=== PATIENT | male | born 1980 | race Hispanic/Latino ===

== ENCOUNTER 2017-10-02 22:39 | Emergency (ER) | payer SELFPAY ==
[2017-10-02 23:27] LABS: Absolute Lymphocytes (CBC) 1.4 K/uL (0.7-4.9); Absolute Monocytes 0.6 K/uL (0.1-1.3); Absolute Neutrophil 6.9 K/uL (1.8-8.0); Basophils % 0.3 % (0-1.3); Eosinophils % 1.6 % (0-4.4); Hematocrit 41.2 % (39.6-49.0); Lymphocytes % 15.3 % (15.3-44.8); MCH 32.3 pg (27.0-35.0); MCV 91.8 fL (80-100); MPV 9.5 fL (7.6-11.3); Monocytes % 6.7 % (3.3-12.3); RBC Red Blood Cell Count 4.49 M/uL (4.33-5.43)
[2017-10-02] MEDS ORDERED: METOPROLOL TARTRATE 5 MG/5 ML INJ IV ONE (23:27)
[2017-10-02] MEDS ORDERED: ACETAMINOPHEN 500 MG TAB ONE (23:27)
[2017-10-02] MEDS ORDERED: ONDANSETRON 4 MG (ODT) TAB ONE (23:27)
[2017-10-02] MEDS ORDERED: cloNIDine HCl 0.1 MG TAB ONE (23:27)
[2017-10-02] MEDS ORDERED: NA CHLORIDE 0.9% 1,000 ML ONE (23:27)
[2017-10-02 23:42] LABS: Potassium 4.1 mmol/L (3.5-5.1)
[2017-10-03] MEDS ORDERED: cloNIDine HCl 0.1 MG TAB ONE (00:29)
[2017-10-03] MEDS ORDERED: NITROGLYCERIN 0.4 MG/TAB SL ONE (01:28)
--- NOTE | 2017-10-03 02:04 | EDPHYS ---
Physician Documentation [facility] Name: Anthony Persaud Age: 36 yrs Sex: Male : 1980 Arrival Date: 10/02/2017 Time: 22:40 Bed 8 Private MD: ED Physician Maxwell Serrano HPI: 10/02 23:04 This 36 yrs old Male presents to ER via Ambulatory with complaints of pkl Headache, High Blood Pressure, Vomiting. 23:04 The patient complains of pain to the left frontal area and left temporal area. The pkl patient describes the headache as constant. Onset: The symptoms/episode began/occurred today, 8 hour(s) ago. Associated signs and symptoms: Pertinent positives: vomiting, Elevated blood pressure. Patient non-compliant with BP medications. Historical: - Allergies: 22:52 No Known Allergies; ak1 - Home Meds: 22:52 carvedilol 6.25 mg oral tab 1 tab [Active]; hydrochlorothiazide 25 mg Oral tab 1 tab ak1 [Active]; - PMHx: 22:52 Hypertension; ak1 - PSHx: 22:52 None; ak1 - Immunization history:: Adult Immunizations up to date. - Social history:: Smoking status: Patient/guardian denies using tobacco. - Ebola Screening: : No symptoms or risks identified at this time. ROS: 23:06 Eyes: Negative for injury, pain, redness, and discharge, ENT: Negative for injury, pkl pain, and discharge, Neck: Negative for injury, pain, and swelling, Cardiovascular: Negative for chest pain, palpitations, and edema, Respiratory: Negative for shortness of breath, cough, wheezing, and pleuritic chest pain. 23:06 Abdomen/GI: Positive for vomiting. 23:06 Back: Negative for acute changes. 23:06 : Negative for urinary symptoms. 23:06 MS/extremity: Negative for acute changes. 23:06 Skin: Negative for rash. 23:06 Neuro: Positive for headache. Exam: 23:06 Head/Face: Normocephalic, atraumatic. Eyes: Pupils equal round and reactive to light, pkl extra-ocular motions intact. Lids and lashes normal. Conjunctiva and sclera are non-icteric and not injected. Cornea within normal limits. Periorbital areas with no swelling, redness, or edema. ENT: Nares patent. No nasal discharge, no septal abnormalities noted. Tympanic membranes are normal and external auditory canals are clear. Oropharynx with no redness, swelling, or masses, exudates, or evidence of obstruction, uvula midline. Mucous membranes moist. Neck: Trachea midline, no thyromegaly or masses palpated, and no cervical lymphadenopathy. Supple, full range of motion without nuchal rigidity, or vertebral point tenderness. No Meningismus. Chest/axilla: Normal chest wall appearance and motion. Nontender with no deformity. No lesions are appreciated. Cardiovascular: Regular rate and rhythm with a normal S1 and S2. No gallops, murmurs, or rubs. Normal PMI, no JVD. No pulse deficits. Respiratory: Lungs have equal breath sounds bilaterally, clear to auscultation and percussion. No rales, rhonchi or wheezes noted. No increased work of breathing, no retractions or nasal flaring. Abdomen/GI: Soft, non-tender, with normal bowel sounds. No distension or tympany. No guarding or rebound. No evidence of tenderness throughout. Back: No spinal tenderness. No costovertebral tenderness. Full range of motion. Skin: Warm, dry with normal turgor. Normal color with no rashes, no lesions, and no evidence of cellulitis. MS/ Extremity: Pulses equal, no cyanosis. Neurovascular intact. Full, normal range of motion. Neuro: Awake and alert, GCS 15, oriented to person, place, time, and situation. Cranial nerves II-XII grossly intact. Motor strength 5/5 in all extremities. Sensory grossly intact. Cerebellar exam normal. Normal gait. Vital Signs: 22:49 BP 217 / 129; Pulse 83; Resp 18; Temp 98.5; Pulse Ox 98% on R/A; Weight 108.86 kg (R); ak1 Height 5 ft. 9 in. (175.26 cm) (R); Pain 9/10; 23:00 BP 206 / 133; Pulse 77; Resp 18; Pulse Ox 98% on R/A; lp1 23:15 BP 192 / 127; Pulse 74; Resp 19; Pulse Ox 98% on R/A; lp1 23:30 BP 195 / 129; Pulse 75; Resp 19; Pulse Ox 98% on R/A; lp1 23:45 BP 184 / 125; Pulse 68; Resp 18; Pulse Ox 97% on R/A; lp1 10/03 00:15 BP 179 / 118; Pulse 70; Resp 20; Pulse Ox 98% on R/A; lp1 00:45 BP 167 / 115; Pulse 64; Resp 15; Pulse Ox 96% on R/A; lp1 01:15 BP 150 / 121; Pulse 62; Resp 14; Pulse Ox 96% on R/A; lp1 01:30 BP 164 / 108; Pulse 64; Resp 14; Pulse Ox 96% on R/A; lp1 02:00 BP 149 / 100; Pulse 65; Resp 14; Pulse Ox 96% on R/A; lp1 02:30 BP 140 / 102; Pulse 64; Resp 16; Pulse Ox 96% on R/A; ao 10/02 22:49 Body Mass Index 35.44 (108.86 kg, 175.26 cm) ak1 MDM: 10/02 22:41 Patient medically screened. pkl 10/03 02:02 Data reviewed: vital signs, nurses notes, lab test result(s), radiologic studies, CT pkl scan. 10/02 22:57 Order name: CBC with Diff; Complete Time: 23:34 pkl 10/02 22:57 Order name: Chem 7; Complete Time: 23:43 pkl 10/02 22:57 Order name: CT Head Brain wo Cont pkl 10/02 23:08 Order name: EKG - Nurse/Tech; Complete Time: 23:08 1 10/02 23:08 Order name: EKG; Complete Time: 23:08 [facility] Administered Medications: 10/02 23:30 Drug: NS 0.9% 1000 ml Route: IV; Rate: 100 ml/hr; Site: left antecubital; [facility] 10/03 02:49 Follow up: IV Status: IV converted to saline lock [facility] 10/02 23:30 Drug: Lopressor 5 mg Route: IVP; Site: left antecubital; [facility] 10/03 00:24 Follow up: Response: Blood pressure is lowered [facility] 10/02 23:30 Drug: cloNIDine 0.1 mg Route: PO; [facility] 10/03 00:24 Follow up: Response: Blood pressure is lowered [facility] 10/02 23:30 Drug: Tylenol 1000 mg Route: PO; [facility] 10/03 00:24 Follow up: Response: Pain is decreased [facility] 10/02 23:30 Drug: Zofran 4 mg Route: PO; lp1 10/03 00:24 Follow up: Response: Nausea is decreased lp1 00:28 Drug: cloNIDine 0.1 mg Route: PO; lp1 02:48 Follow up: Response: Blood pressure is lowered lp1 01:43 Drug: Nitroglycerin 0.4 mg Route: Sublingual; lp1 02:48 Follow up: Response: Blood pressure is lowered lp1 Disposition: 10/03/17 02:04 Discharged to Home. Impression: Acute headache. Severe hypertension. Non-compliant. Chronic sinusitis. - Condition is Stable. - Prescriptions for Ultram 50 mg Oral Tablet - take 1 tablet by ORAL route every 8 hours As needed; 20 tablet. - Medication Reconciliation Form, Thank You Letter, Antibiotic Education, Prescription Opioid Use, Work release form form. - Follow up: Mariely Gutierrez MD; When: 2 - 3 days; Reason: Re-evaluation by your physician. - Problem is new. - Symptoms have improved. Signatures: Dispatcher [employer] EDMS Maxwell Serrano MD MD pkl Martha Horn, RN RN lp1 Molly Miles, RN RN ak1 Corrections: (The following items were deleted from the chart) 02:50 02:04 10/03/2017 02:04 Discharged to Home. Impression: Acute headache. Severe lp1 hypertension. Non-compliant. Chronic sinusitis. Condition is Stable. Forms are Medication Reconciliation Form, Thank You Letter, Antibiotic Education, Prescription Opioid Use. Follow up: Mariely Gutierrez; When: 2 - 3 days; Reason: Re-evaluation by your physician. Problem is new. Symptoms have improved. pkl
--- NOTE | 2017-10-03 02:04 | ER ---
Nurse's Notes [facility] Name: Anthony Persaud Age: 36 yrs Sex: Male : 1980 Arrival Date: 10/02/2017 Time: 22:40 Bed 8 Private MD: Diagnosis: Acute headache. Severe hypertension. Non-compliant. Chronic sinusitis Presentation: 10/02 22:49 Presenting complaint: Patient states: headache since 1500 today. pt stated he should ak1 take blood pressure medications but does not. pt brought in full bottles of cravedilol 6.25mg and HCTZ 25mg. Transition of care: patient was not received from another setting of care. Onset of symptoms was October 02, 2017. Risk Assessment: Do you want to hurt yourself or someone else? Patient reports no desire to harm self or others. Care prior to arrival: None. 22:49 Method Of Arrival: Ambulatory ak1 22:49 Acuity: MISHA 3 ak1 23:11 Initial Sepsis Screen: Does the patient meet any 2 criteria? No. Patient's initial lp1 sepsis screen is negative. Does the patient have a suspected source of infection? No. Patient's initial sepsis screen is negative. Triage Assessment: 22:52 General: Appears in no apparent distress. Behavior is calm, cooperative. Pain: ak1 Complains of pain in head Pain currently is 9 out of 10 on a pain scale. Pain began 1500 today Also complains of nausea. EENT: No signs and/or symptoms were reported regarding the EENT system. Neuro: Level of Consciousness is awake, alert, obeys commands, Oriented to person, place, time, situation, Burr Bench Operator are equal bilaterally Moves all extremities. Gait is steady, Speech is normal, Facial symmetry appears normal. 23:15 Headache History: The patient has had previous headaches and this one is similar to lp1 previous episodes. Historical: - Allergies: 22:52 No Known Allergies; ak1 - Home Meds: 22:52 carvedilol 6.25 mg oral tab 1 tab [Active]; hydrochlorothiazide 25 mg Oral tab 1 tab ak1 [Active]; - PMHx: 22:52 Hypertension; ak1 - PSHx: 22:52 None; ak1 - Immunization history:: Adult Immunizations up to date. - Social history:: Smoking status: Patient/guardian denies using tobacco. - Ebola Screening: : No symptoms or risks identified at this time. Screenin:53 Abuse screen: Denies threats or abuse. Denies injuries from another. Nutritional ak1 screening: No deficits noted. Tuberculosis screening: No symptoms or risk factors identified. Fall Risk None identified. Assessment: 23:09 General: Appears in no apparent distress. Behavior is calm, cooperative, appropriate lp1 for age. Pain: Complains of pain in head Pain currently is 5 out of 10 on a pain scale. Quality of pain is described as aching. Neuro: Level of Consciousness is awake, alert, obeys commands, Oriented to person, place, time, situation, Gait is steady, Pupils are PERRLA, Reports headache. Cardiovascular: Patient's skin is warm and dry. Respiratory: Respiratory effort is even, unlabored, Breath sounds are clear bilaterally. GI: Reports nausea, vomiting. : No signs and/or symptoms were reported regarding the genitourinary system. EENT: No signs and/or symptoms were reported regarding the EENT system. Derm: Skin is pink, warm \T\ dry. Musculoskeletal: Circulation, motion, and sensation intact. 10/03 00:29 Reassessment: Patient appears in no apparent distress at this time. Patient and/or lp1 family updated on plan of care and expected duration. Pain level reassessed. Patient states headache relieved. 01:30 Reassessment: Patient appears in no apparent distress at this time. Patient and/or lp1 family updated on plan of care and expected duration. Pain level reassessed. Patient resting, eyes closed, respirations unlabored. 02:30 Reassessment: Patient appears in no apparent distress at this time. Patient and/or lp1 family updated on plan of care and expected duration. Pain level reassessed. Patient denies pain at this time. Patient states feeling better. Patient states symptoms have improved. Neuro: Gait is steady. Vital Signs: 10/02 22:49 BP 217 / 129; Pulse 83; Resp 18; Temp 98.5; Pulse Ox 98% on R/A; Weight 108.86 kg (R); ak1 Height 5 ft. 9 in. (175.26 cm) (R); Pain 9/10; 23:00 BP 206 / 133; Pulse 77; Resp 18; Pulse Ox 98% on R/A; lp1 23:15 BP 192 / 127; Pulse 74; Resp 19; Pulse Ox 98% on R/A; lp1 23:30 BP 195 / 129; Pulse 75; Resp 19; Pulse Ox 98% on R/A; lp1 23:45 BP 184 / 125; Pulse 68; Resp 18; Pulse Ox 97% on R/A; lp1 10/03 00:15 BP 179 / 118; Pulse 70; Resp 20; Pulse Ox 98% on R/A; lp1 00:45 BP 167 / 115; Pulse 64; Resp 15; Pulse Ox 96% on R/A; lp1 01:15 BP 150 / 121; Pulse 62; Resp 14; Pulse Ox 96% on R/A; lp1 01:30 BP 164 / 108; Pulse 64; Resp 14; Pulse Ox 96% on R/A; lp1 02:00 BP 149 / 100; Pulse 65; Resp 14; Pulse Ox 96% on R/A; lp1 02:30 BP 140 / 102; Pulse 64; Resp 16; Pulse Ox 96% on R/A; ao 10/02 22:49 Body Mass Index 35.44 (108.86 kg, 175.26 cm) ak1 ED Course: 10/02 22:40 Patient arrived in ED. al2 22:41 Maxwell Serrano MD is Attending Physician. pkl 22:50 Triage completed. ak1 22:52 Arm band placed on Patient placed in an exam room, on a stretcher, on pulse oximetry, ak1 Patient notified of wait time. 22:53 Patient has correct armband on for positive identification. Placed in gown. Bed in low ak1 position. Call light in reach. Side rails up X 1. Pulse ox on. NIBP on. 23:07 EKG done, by ED staff, reviewed by Maxwell Serrano MD. lp1 23:11 Davide Sun, RN is Primary Nurse. ao 23:12 Martha Horn, MAMIE is Primary Nurse. lp1 23:25 Inserted saline lock: 20 gauge in right antecubital area, using aseptic technique. lp1 23:33 CT completed. Patient tolerated procedure well. Patient moved to CT via wheelchair. eh Patient moved back from CT. 23:38 CT Head Brain wo Cont In Process Unspecified. EDMS 10/03 02:02 Mariely Gutierrez MD is Referral Physician. pkl 02:17 No provider procedures requiring assistance completed. lp1 02:47 IV discontinued, No redness/swelling at site. Pressure dressing applied. lp1 Administered Medications: 10/02 23:30 Drug: NS 0.9% 1000 ml Route: IV; Rate: 100 ml/hr; Site: left antecubital; lp1 10/03 02:49 Follow up: IV Status: IV converted to saline lock lp1 10/02 23:30 Drug: Lopressor 5 mg Route: IVP; Site: left antecubital; lp1 10/03 00:24 Follow up: Response: Blood pressure is lowered lp1 10/02 23:30 Drug: cloNIDine 0.1 mg Route: PO; lp1 10/03 00:24 Follow up: Response: Blood pressure is lowered lp1 10/02 23:30 Drug: Tylenol 1000 mg Route: PO; lp1 10/03 00:24 Follow up: Response: Pain is decreased lp1 10/02 23:30 Drug: Zofran 4 mg Route: PO; lp1 10/03 00:24 Follow up: Response: Nausea is decreased lp1 00:28 Drug: cloNIDine 0.1 mg Route: PO; lp1 02:48 Follow up: Response: Blood pressure is lowered lp1 01:43 Drug: Nitroglycerin 0.4 mg Route: Sublingual; lp1 02:48 Follow up: Response: Blood pressure is lowered lp1 Outcome: 02:04 Discharge ordered by . [email or web address] 02:47 Discharged to home ambulatory. lp1 02:47 Condition: good 02:47 Discharge instructions given to patient, Instructed on discharge instructions, follow up and referral plans. medication usage, Demonstrated understanding of instructions, follow-up care, medications, Prescriptions given X 1. 02:50 Patient left the ED. lp1 Signatures: Dispatcher [employer] EDMS Maxwell Serrano MD MD pkl Hagler, Ervin eh Pena, Laura, RN RN lp1 Molly Miles RN RN luis1 Davide Sun RN RN Brooklyn Sawyer
--- NOTE | 2017-10-03 06:46 | EKG ---
Test Date: 2017-10-02 Test Time: 22:59:56 [employer] Fundraiser: SARATH MEASUREMENT RESULTS: Intervals: Rate: 76 MO: 146 QRSD: 104 QT: 394 QTc: 443 [place]: P: 51 MO: 146 QRS: 87 T: 18 INTERPRETIVE STATEMENTS: Normal sinus rhythm Incomplete right bundle branch block Borderline ECG No previous ECG available for comparison Electronically Signed On 10-03-17 06:46:04 CDT by Dong Castillo
--- NOTE | 2017-10-03 08:43 | RAD REPORT ---
EXAM DESCRIPTION: CT - Head Brain Wo Cont - 10/03/2017 2:42 am CLINICAL HISTORY: Persistent headache. A preliminary written report was provided at the time of the study, and the report was reviewed prio r to final dictation. COMPARISON: None. TECHNIQUE: Axial 5 mm thick images of the head were obtained without IV contrast. All CT scans are performed using dose optimization technique as appropriate and may include automated exposure control or mA/KV adjustment according to patient size. FINDINGS: No intracranial hemorrhage, mass, edema or shift of mid-line structures. No acute infarcti on changes seen. No abnormal extra-axial fluid collections. Ventricles are normal. Mastoid air cells are clear. No acute bony finding. Mucosal thickening changes are present throughout the paranasal sinuses. Air-fluid level is present in the right maxillary sinus and probably in the r ight side sphenoid sinus. A right frontal sinus air-fluid level is also present. No sclerotic or expa nsile bone component. No acute bony findings. IMPRESSION: No intracranial abnormality identified. Acute and chronic sinusitis changes.
== END 2017-10-03 02:50 | disposition home or self-care (01) ==
LOC: ER 22:39
DX: R51 Headache (principal); I10 Essential (primary) hypertension; Z91.19 Patient's noncompliance with other medical treatment and regimen; J32.9 Chronic sinusitis, unspecified
CPT/HCPCS: 36415; 70450; 80048; 85025; 93005; 96361; 96374; 99284; J7030

== ENCOUNTER 2017-11-07 22:36 | Emergency (ER) | payer SELFPAY ==
[2017-11-07] MEDS ORDERED: KETOROLAC 30 MG/ML INJ ONE (22:58)
[2017-11-07 23:16] LABS: Absolute Lymphocytes (CBC) 2.6 K/uL (0.7-4.9); Absolute Monocytes 0.8 K/uL (0.1-1.3); Absolute Neutrophil 4.3 K/uL (1.8-8.0); Basophils % 0.4 % (0-1.3); Hematocrit 44.2 % (39.6-49.0); Lymphocytes % 32.8 % (15.3-44.8); MCH 31.7 pg (27.0-35.0); MCV 91.7 fL (80-100); MPV 10.5 fL (7.6-11.3); Monocytes % 10.5 % (3.3-12.3); RBC Red Blood Cell Count 4.82 M/uL (4.33-5.43)
[2017-11-07] MEDS ORDERED: LIDOCAINE VISCOUS 2% SOLN 15 ML UDC ONE (23:27)
[2017-11-07] MEDS ORDERED: PANTOPRAZOLE 40 MG INJ ONE (23:27)
[2017-11-07] MEDS ORDERED: MAGNES/ALUMIN/SIMET 30ML UCUP ONE (23:28)
[2017-11-07] MEDS ORDERED: MORPHINE 4 MG/ML SYR ONE (23:48)
[2017-11-07] MEDS ORDERED: ONDANSETRON 4 MG/2 ML VIAL ONE (23:48)
[2017-11-08 00:10] LABS: Urine Bacteria <20 /HPF (NONE SEEN); Urine Culture Reflex Order NOT NEEDED; Urine Mucus 4+ /HPF (NONE SEEN); Urine RBC <5 /HPF (NONE SEEN)
[2017-11-08 00:11] LABS: Urine Blood NEGATIVE (NEG); Urine Glucose NEGATIVE (NEG); Urine Protein 1+ (NEG); Urine Specific Gravity >1.030 (1.005-1.030)
[2017-11-08 00:12] LABS: ALT/SGPT 57 U/L (12-78); AST/SGOT 48 U/L (15-37); Albumin 4.2 g/dL (3.4-5.0); Alkaline Phosphatase 78 U/L (45-117); Amylase Level 34 U/L (25-115); BUN Blood Urea Nitrogen 16 mg/dL (7-18); Bicarbonate 27 mmol/L (21-32); Bilirubin Direct < 0.1 mg/dL (0-0.2); Bilirubin Total 0.6 mg/dL (0.2-1.0); Glucose Level 146 mg/dL (74-106); Lipase 157 U/L (73-393); Potassium 3.7 mmol/L (3.5-5.1); Protein, Total 8.5 g/dL (6.4-8.2); Sodium Level 139 mmol/L (136-145)
--- NOTE | 2017-11-08 00:39 | ER ---
Nurse's Notes [facility] Name: Anthony Persaud Age: 36 yrs Sex: Male : 1980 Arrival Date: 11/07/2017 Time: 22:39 Bed 28 Private MD: Diagnosis: Gastritis, unspecified, without bleeding Presentation: 11/07 22:44 Presenting complaint: Patient states: sudden onset epigastric pain at approx 7:30pm sr5 after eating, +vomiting, denies diarrhea/fever. PMH=HTN. Transition of care: patient was not received from another setting of care. Onset of symptoms was November 07, 2017. Risk Assessment: Do you want to hurt yourself or someone else? Patient reports no desire to harm self or others. Initial Sepsis Screen: Does the patient meet any 2 criteria? No. Patient's initial sepsis screen is negative. Does the patient have a suspected source of infection? No. Patient's initial sepsis screen is negative. Care prior to arrival: None. 22:44 Method Of Arrival: Ambulatory sr5 22:44 Acuity: MISHA 3 sr5 Triage Assessment: 22:45 General: Appears uncomfortable, Behavior is anxious. Pain: Complains of pain in sr5 epigastric area Pain does not radiate. Pain currently is 10 out of 10 on a pain scale. Neuro: No deficits noted. Cardiovascular: No deficits noted. Respiratory: No deficits noted. GI: Reports upper abdominal pain, nausea, vomiting. Historical: - Allergies: 22:45 No Known Allergies; sr5 - Home Meds: 23:02 carvedilol 6.25 mg Oral tab 1 tab [Active]; hydrochlorothiazide 25 mg Oral tab 1 tab ak1 [Active]; - PMHx: 22:45 Hypertension; sr5 - PSHx: 22:45 None; sr5 - Immunization history:: Adult Immunizations up to date. - Social history:: Smoking status: Patient/guardian denies using tobacco, never smoked. - Ebola Screening: : Patient negative for fever greater than or equal to 101.5 degrees Fahrenheit, and additional compatible Ebola Virus Disease symptoms. Screenin:01 Abuse screen: Denies threats or abuse. Denies injuries from another. Nutritional ak1 screening: No deficits noted. Tuberculosis screening: No symptoms or risk factors identified. Fall Risk None identified. Assessment: 23:09 Reassessment: pt c/o epigastric pain with vomiting x1 in ER lobby s/p eating taco dye. ak1 pt given toradol IV, pt continues to c/o epigastric pain. ERP notified, no new orders at this time. Patient states symptoms have not improved. General: Appears uncomfortable, Behavior is agitated, anxious, restless. Pain: Complains of pain in epigastric area. Neuro: No deficits noted. Cardiovascular: No deficits noted. Respiratory: No deficits noted. GI: Abdomen is round Bowel sounds present X 4 quads. Abd is soft X 4 quads Abdomen is tender to palpation in epigastric area. : No signs and/or symptoms were reported regarding the genitourinary system. EENT: No signs and/or symptoms were reported regarding the EENT system. Derm: No signs and/or symptoms reported regarding the dermatologic system. Musculoskeletal: No signs and/or symptoms reported regarding the musculoskeletal system. 23:29 Reassessment: Patient and/or family updated on plan of care and expected duration. Pain ak1 level reassessed. Patient is alert, oriented x 3, equal unlabored respirations, skin warm/dry/pink. pt no longer pacing the room and able to lye on stretcher. no vomiting noted or reported. will continue to monitor. . 23:49 Reassessment: Patient and/or family updated on plan of care and expected duration. Pain ak1 level reassessed. Patient states feeling better. Patient states symptoms have improved. 23:52 Reassessment: pt oxygen saturation drop to 88% after morphine administration. pt placed ak1 on 2L NC. . 11/08 00:36 Reassessment: Patient appears in no apparent distress at this time. Patient and/or ak1 family updated on plan of care and expected duration. Pain level reassessed. Patient is alert, oriented x 3, equal unlabored respirations, skin warm/dry/pink. pt calling his brother for ride home. Patient states feeling better. Patient states symptoms have improved. Vital Signs: 11/07 22:45 BP 180 / 152; Pulse 83; Resp 20; Temp 97.7; Pulse Ox 100% on R/A; Weight 99.79 kg (R); sr5 Height 5 ft. 9 in. (175.26 cm); Pain 10/10; 23:29 BP 186 / 109; Pulse 71; Resp 20; Pulse Ox 100% on R/A; Pain 7/10; ak1 23:53 BP 182 / 115; Pulse 59; Resp 16; Pulse Ox 98% on 2 lpm NC; Pain 2/10; ak1 11/08 00:31 BP 152 / 96; Pulse 66; Resp 16; Temp 98; Pulse Ox 99% on 2 lpm NC; Pain 1/10; ak1 11/07 22:45 Body Mass Index 32.49 (99.79 kg, 175.26 cm) 5 ED Course: 11/07 22:39 Patient arrived in ED. al2 22:43 Garret Miles, RN is Primary Nurse. ak1 22:45 Triage completed. sr5 22:45 Arm band placed on. sr5 22:49 Peyman Altman MD is Attending Physician. tw4 22:54 Placed in gown. Bed in low position. Call light in reach. Side rails up X 1. Pulse ox jp3 on. NIBP on. 22:54 Urine collected: clean catch specimen, clear, garret colored, Amount Voided: 60mL. jp3 23:02 No provider procedures requiring assistance completed. Initial lab(s) drawn, by ca, ak1 sent to lab. Inserted saline lock: 20 gauge in left antecubital area, using aseptic technique. Blood collected. 23:11 Amylase, Serum Sent. ak1 23:11 Basic Metabolic Panel Sent. ak1 23:11 CBC with Diff Sent. ak1 23:11 Hepatic Function Sent. ak1 23:11 Lipase Sent. ak1 11/08 00:45 IV discontinued, intact, bleeding controlled, No redness/swelling at site. Pressure ak1 dressing applied. Administered Medications: 11/07 23:00 Drug: TORadol 30 mg Route: IVP; Site: left antecubital; ak1 23:11 Follow up: Response: No adverse reaction; Pain is unchanged, physician notified ak1 23:29 Drug: GI Cocktail without - (Maalox Suspension 30 ml, Lidocaine Liquid 2 % 15 ak1 ml) Route: PO; 23:38 Follow up: Response: No adverse reaction ak1 23:29 Drug: ProTONIX 40 mg Route: IVP; Site: left antecubital; ak1 23:38 Follow up: Response: No adverse reaction ak1 23:47 Drug: morphine 4 mg Route: IVP; Site: left antecubital; ak1 23:55 Follow up: Response: Pain is decreased ak1 23:47 Drug: Zofran 4 mg Route: IVP; Site: left antecubital; ak1 23:55 Follow up: Response: No adverse reaction ak1 Outcome: 11/08 00:37 Condition: improved ak1 00:38 Discharge ordered by . tw4 00:45 Discharged to home ambulatory, with family. ak1 00:45 Discharge instructions given to patient, Instructed on discharge instructions, follow up and referral plans. medication usage, Demonstrated understanding of instructions, follow-up care, medications, Prescriptions given X 2. 00:46 Patient left the ED. ak1 Signatures: Garret Miles RN RN ak1 Marc Israel RN RN sr5 Sylvia, Peyman West MD MD tw4 Marbin Burch jp3
--- NOTE | 2017-11-08 00:39 | EDPHYS ---
Physician Documentation [facility] Name: Anthony Persaud Age: 36 yrs Sex: Male : 1980 Arrival Date: 11/07/2017 Time: 22:39 Bed 28 Private MD: ED Physician Peyman Altman HPI: 11/08 00:32 This 36 yrs old Male presents to ER via Ambulatory with complaints of tw4 ABDOMINAL PAIN. 00:34 The patient presents with abdominal pain. The patient presents with abdominal pain in tw4 the epigastric area. Onset: The symptoms/episode began/occurred today. 00:34 The symptoms do not radiate. Associated signs and symptoms: Pertinent positives: tw4 nausea, vomiting, and diarrhea, nausea and vomiting. The symptoms are described as sharp, shooting. Modifying factors: The symptoms are alleviated by nothing, the symptoms are aggravated by nothing. Severity of pain: At its worst the pain was severe in the emergency department the pain. Historical: - Allergies: 11/07 22:45 No Known Allergies; sr5 - Home Meds: 23:02 carvedilol 6.25 mg Oral tab 1 tab [Active]; hydrochlorothiazide 25 mg Oral tab 1 tab ak1 [Active]; - PMHx: 22:45 Hypertension; sr5 - PSHx: 22:45 None; sr5 - Immunization history:: Adult Immunizations up to date. - Social history:: Smoking status: Patient/guardian denies using tobacco, never smoked. - Ebola Screening: : Patient negative for fever greater than or equal to 101.5 degrees Fahrenheit, and additional compatible Ebola Virus Disease symptoms. ROS: 11/08 00:36 Constitutional: Negative for fever, chills, and weight loss, Cardiovascular: Negative tw4 for chest pain, palpitations, and edema, Respiratory: Negative for shortness of breath, cough, wheezing, and pleuritic chest pain, Back: Negative for injury and pain, MS/Extremity: Negative for injury and deformity, Skin: Negative for injury, rash, and discoloration, Neuro: Negative for headache, weakness, numbness, tingling, and seizure. Abdomen/GI: Positive for abdominal pain, nausea and vomiting, nausea, vomiting, and diarrhea, nausea, vomiting, Negative for diarrhea, constipation, black/tarry stool, rectal pain, rectal bleeding, bowel incontinence, flatulence. Exam: 00:36 Constitutional: This is a well developed, well nourished patient who is awake, alert, tw4 and in no acute distress. Head/Face: Normocephalic, atraumatic. 00:36 Neck: Trachea midline, no thyromegaly or masses palpated, and no cervical tw4 lymphadenopathy. Supple, full range of motion without nuchal rigidity, or vertebral point tenderness. No Meningismus. Chest/axilla: Normal chest wall appearance and motion. Nontender with no deformity. No lesions are appreciated. Cardiovascular: Regular rate and rhythm with a normal S1 and S2. No gallops, murmurs, or rubs. Normal PMI, no JVD. No pulse deficits. Respiratory: Lungs have equal breath sounds bilaterally, clear to auscultation and percussion. No rales, rhonchi or wheezes noted. No increased work of breathing, no retractions or nasal flaring. Back: No spinal tenderness. No costovertebral tenderness. Full range of motion. Skin: Warm, dry with normal turgor. Normal color with no rashes, no lesions, and no evidence of cellulitis. MS/ Extremity: Pulses equal, no cyanosis. Neurovascular intact. Full, normal range of motion. Neuro: Awake and alert, GCS 15, oriented to person, place, time, and situation. Cranial nerves II-XII grossly intact. Motor strength 5/5 in all extremities. Sensory grossly intact. Cerebellar exam normal. Normal gait. 00:36 Abdomen/GI: Inspection: abdomen appears normal, Bowel sounds: diminished, in all quadrants, Palpation: moderate abdominal tenderness, in the epigastric area, voluntary guarding, no appreciated organomegaly. Vital Signs: 11/07 22:45 BP 180 / 152; Pulse 83; Resp 20; Temp 97.7; Pulse Ox 100% on R/A; Weight 99.79 kg (R); sr5 Height 5 ft. 9 in. (175.26 cm); Pain 10/10; 23:29 BP 186 / 109; Pulse 71; Resp 20; Pulse Ox 100% on R/A; Pain 7/10; ak1 23:53 BP 182 / 115; Pulse 59; Resp 16; Pulse Ox 98% on 2 lpm NC; Pain 2/10; ak1 11/08 00:31 BP 152 / 96; Pulse 66; Resp 16; Temp 98; Pulse Ox 99% on 2 lpm NC; Pain 1/10; ak1 11/07 22:45 Body Mass Index 32.49 (99.79 kg, 175.26 cm) sr5 MDM: 11/07 22:52 Patient medically screened. tw11/08 00:36 Differential diagnosis: cholecystitis, Cholelithiasis, diverticulitis, gastritis, tw4 gastroesophageal reflux disease, GI Bleed, Hepatitis. Data reviewed: vital signs, nurses notes. Counseling: I had a detailed discussion with the patient and/or guardian regarding: the historical points, exam findings, and any diagnostic results supporting the discharge/admit diagnosis, lab results. Medication response: GI Cocktail relieved the patient's pain. The symptoms have resolved, Response to treatment: and as a result, I will discharge patient. Special discussion: Based on the patient's Hx, exam, and Dx evaluation, there is no indication for emergent surgery or inpatient Tx. It is understood by the patient/guardian that if the Sx's persist or worsen they need to return immediately for re-evaluation. I discussed with the patient/guardian in detail that at this point there is no indication for admission to the hospital. It is understood, however, that if the symptoms persist or worsen the patient needs to return immediately for re-evaluation. 11/07 22:52 Order name: Amylase, Serum 11/07 22:52 Order name: Basic Metabolic Panel 11/07 22:52 Order name: CBC with Diff 11/07 22:52 Order name: Hepatic Function 11/07 22:52 Order name: Lipase 11/07 22:52 Order name: Urine Microscopic Only; Complete Time: 00:35 11/07 22:52 Order name: Amylase Level; Complete Time: 00:35 EDMS 11/07 22:52 Order name: Basic Metabolic Panel; Complete Time: 00:35 EDMS 11/08 00:36 Interpretation: Normal except: GLUC 146. 11/07 22:52 Order name: CBC with Automated Diff; Complete Time: 23:41 EDMS 11/08 00:35 Interpretation: Within normal limits. 11/07 22:52 Order name: Liver (Hepatic) Function; Complete Time: 00:35 EDMS 11/07 22:52 Order name: Lipase; Complete Time: 00:35 EDMS 11/07 22:54 Order name: Urine Dipstick--Ancillary (enter results); Complete Time: 00:35 mt 11/07 22:52 Order name: IV Saline Lock; Complete Time: 23:00 tw4 11/07 22:52 Order name: Labs collected and sent; Complete Time: 23:00 tw4 11/07 22:52 Order name: Urine Dipstick-Ancillary (obtain specimen); Complete Time: 23:00 tw4 Administered Medications: 11/07 23:00 Drug: TORadol 30 mg Route: IVP; Site: left antecubital; ak1 23:11 Follow up: Response: No adverse reaction; Pain is unchanged, physician notified ak1 23:29 Drug: GI Cocktail without - (Maalox Suspension 30 ml, Lidocaine Liquid 2 % 15 ak1 ml) Route: PO; 23:38 Follow up: Response: No adverse reaction ak1 23:29 Drug: ProTONIX 40 mg Route: IVP; Site: left antecubital; ak1 23:38 Follow up: Response: No adverse reaction ak1 23:47 Drug: morphine 4 mg Route: IVP; Site: left antecubital; ak1 23:55 Follow up: Response: Pain is decreased ak1 23:47 Drug: Zofran 4 mg Route: IVP; Site: left antecubital; ak1 23:55 Follow up: Response: No adverse reaction ak1 Disposition: 11/08/17 00:38 Discharged to Home. Impression: Gastritis, unspecified, without bleeding. - Condition is Stable. - Discharge Instructions: Gastritis, Adult, Esophagogastroduodenoscopy. - Prescriptions for Protonix 40 mg Oral Tablet - take 1 tablet by ORAL route once daily; 30 tablet. Zofran 4 mg Oral Tablet - take 1 tablet by ORAL route every 12 hours As needed; 20 tablet. - Medication Reconciliation Form, Thank You Letter, Antibiotic Education, Prescription Opioid Use form. - Follow up: Private Physician; When: Upon discharge from the Emergency Department; Reason: Further diagnostic work-up, Recheck today's complaints, Continuance of care. - Problem is new. - Symptoms have improved. Signatures: [facility] Molly Miles RN RN ak1 ResMarc carlson RN RN sr5 Peyman Altman MD MD tw4 Corrections: (The following items were deleted from the chart) 23:12 22:52 Creatinine for Radiology+[id number].LAB.BRZ ordered. [facility] EDMO 11/08 00:46 00:38 11/08/2017 00:38 Discharged to Home. Impression: Gastritis, unspecified, without ak1 bleeding. Condition is Stable. Forms are Medication Reconciliation Form, Thank You Letter, Antibiotic Education, Prescription Opioid Use. Follow up: Private Physician; When: Upon discharge from the Emergency Department; Reason: Further diagnostic work-up, Recheck today's complaints, Continuance of care. Problem is new. Symptoms have improved. tw4
== END 2017-11-08 00:46 | disposition home or self-care (01) ==
LOC: ER 22:36
DX: K29.70 Gastritis, unspecified, without bleeding (principal); I10 Essential (primary) hypertension
CPT/HCPCS: 36415; 80048; 80076; 81003; 81015; 82150; 83690; 85025; 96374; 96375; 99284; C9113; J2405